=== PATIENT | female | born 1965 | race Asian ===

== ENCOUNTER 2018-10-17 09:04 | Day surgery (SDC) | payer OTHER ==
[2018-10-16 15:04] VITALS: BMI 27.4
[2018-10-17 10:19] VITALS: TEMP 98
[2018-10-17 13:22] VITALS: BP 109/76; PULSE 62
== END 2018-10-17 11:40 | disposition home or self-care (01) ==
LOC: JASU-ENDO 09:04
PROVIDERS: ATTEND Internal Medicine Gastroenterology
PROC: 0DBK8ZX Excision of Ascending Colon, Via Natural or Artificial Opening Endoscopic, Diagnostic (ICD-10-PCS; principal; 2018-10-17 09:30)
DX: Z12.11 Encounter for screening for malignant neoplasm of colon (principal); D12.2 Benign neoplasm of ascending colon; K57.30 Diverticulosis of large intestine without perforation or abscess without bleeding; K64.8 Other hemorrhoids; K63.89 Other specified diseases of intestine
CPT/HCPCS: 88305-TC

== ENCOUNTER 2018-10-29 17:17 | Emergency (ER) | payer OTHER ==
[2018-10-29 17:34] VITALS: BP 145/76; PULSE 70; TEMP 98; BMI 26.2
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
[2018-10-29] MEDS ORDERED: ACETAMINOPHEN 325 MG TABLET (FP) ONE (18:36)
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
[2018-10-29] MEDS ORDERED: ACETAMINOPHEN 325 MG TABLET (FP) PO ONE (18:53)
== END 2018-10-29 18:59 | disposition home or self-care (01) ==
LOC: JERFT 17:17
DX: M54.2 Cervicalgia (principal); M25.531 Pain in right wrist; V43.52XA Car driver injured in collision with other type car in traffic accident, initial encounter; W22.11XA Striking against or struck by driver side automobile airbag, initial encounter; Y92.414 Local residential or business street as the place of occurrence of the external cause; Y93.89 Activity, other specified; Y99.8 Other external cause status
CPT/HCPCS: 72050-TC-FY; 73110-TC-RT-FY; 73130-TC-RT-FY; 99282-25

== ENCOUNTER 2021-03-22 18:39 | Emergency (ER) | payer OTHER ==
[2021-03-22 19:14] VITALS: BP 138/88; PULSE 78; TEMP 98.1; BMI 26.9
== END 2021-03-22 22:56 | disposition home or self-care (01) ==
LOC: JER 18:39
DX: R51.9 Headache, unspecified (principal); W18.39XA Other fall on same level, initial encounter
CPT/HCPCS: 70450-TC; 72125-TC; 73523-TC-FY; 93005; 93010; 99285-25